=== PATIENT | female | born 1990 | race Two or more races ===

== ENCOUNTER 2017-10-30 19:07 | Emergency (ER) | payer MEDICAID ==
[~2017-10-30] VITALS: Ht 160 cm; Wt 87.5 kg
--- NOTE | 2017-10-30 19:34 | NUR ---
TO BED 10 AMBULATORY C/O RUQ ABDOMINAL PAIN WITH DIARRHEA X2 DAYS. PT AAOX4 NO ACUTE DISTRESS NOTED, RESP EVEN AND UNLABORED. PENDING ER MD DENNIS.
--- NOTE | 2017-10-30 19:45 | NUR ---
Note elsie in EDM - 10/30/17 at 1946 by RUDDY IV removed. Catheter intact and site benign. Pressure and 4x4 applied to site. No bleeding noted. ambulatory with a steady gait noted. Patient discharged to home in stable condition. Written and verbal after care instructions given. Patient verbalizes understanding of instruction.
[2017-10-30 20:26] LABS: APPEARANCE,URINE Clear (CLEAR); BILIRUBIN,URINE Negative (NEGATIVE); BLOOD, URINE Large Ery/uL (NEGATIVE); COLOR,URINE Yellow (YELLOW); KETONES,URINE Negative (NEGATIVE); LEUKOCYTE ESTERASE ,URINE Negative (NEGATIVE); NITRITE, URINE Negative (NEGATIVE); PH,URINE 5.5 (5.0-8.0); PROTEIN,URINE Negative (NEGATIVE); UGLUCOSE Negative (NEGATIVE); UROBILINOGEN,URINE 0.2 EU/dL (0.2)
[2017-10-30 20:29] LABS: BASOPHILS # (AUTO) 0.1 /CMM (0.0-0.2); BASOPHILS % (AUTO) 0.8 % (0.0-2.0); EOSINOPHILS % (AUTO) 0.9 % (0.0-6.0); HEMATOCRIT 30 % (33-45); LYMPHOCYTES # (AUTO) 1.8 /CMM (0.8-4.8); LYMPHOCYTES % (AUTO) 13.8 % (20.0-44.0); MEAN CORPUSCULAR HGB CONC 33 g/dl (31.0-36.0); MEAN CORPUSCULAR VOLUME 72 fL (82-100); MONOCYTES # (AUTO) 0.8 /CMM (0.1-1.30); MONOCYTES % (AUTO) 6.3 % (2.0-12.0); NEUTROPHILS # (AUTO) 10.2 /CMM (1.8-8.9); NEUTROPHILS % (AUTO) 78.2 % (43.0-81.0); PLATELET COUNT (AUTO) 500 /CMM (150-450); RED BLOOD CELL COUNT(AUTO) 4.21 MIL/uL (4.0-5.2)
[2017-10-30] MEDS ORDERED: KETOROLAC TROMETHAMINE INJ 30 MG/ML VIAL IV ONE (20:30)
[2017-10-30] MEDS ORDERED: IV NS 0.9% 1,000 ML BAG IV ONE (20:30)
[2017-10-30] MEDS ORDERED: KETOROLAC TROMETHAMINE INJ 30 MG/ML VIAL ONE (20:31)
[2017-10-30 20:37] LABS: BACTERIA,URINE Few /HPF (None Seen); MUCUS,URINE Few /LPF (None Seen); RBC,URINE 21-50 /HPF (0-2); SQUAMOUS EPITHELIAL CELL,UR Moderate /HPF (None Seen); URINE AMORPHOUS URATE Few /HPF (None Seen); WBC,URINE 0-2 /HPF (0-3)
[2017-10-30 20:39] LABS: CALCIUM, SERUM 9.1 mg/dL (8.5-10.1); CREATININE 0.8 mg/dL (0.6-1.3); POTASSIUM 3.6 mmol/L (3.5-5.1)
--- NOTE | 2017-10-30 20:45 | NUR ---
UTS TECH AT BEDSIDE.
[2017-10-30 20:46] LABS: BILIRUBIN,TOTAL 0.2 mg/dL (0.2-1.0); TOTAL PROTEIN, SERUM 8.4 g/dL (6.4-8.2)
--- NOTE | 2017-10-30 21:53 | NUR ---
IV removed. Catheter intact and site benign. Pressure and 4x4 applied to site. No bleeding noted. Patient discharged to home in stable condition. Written and verbal after care instructions given. Patient verbalizes understanding of instruction. ambulatory with a steady gait
[2017-10-30 21:55] VITALS: BP 121/62
== END 2017-10-30 21:56 | disposition home or self-care (01) ==
LOC: ER 19:12
DX: N13.2 Hydronephrosis with renal and ureteral calculous obstruction (principal)
CPT/HCPCS: 36415; 76705-TC; 80048-TC; 80076-TC; 81000-TC; 83690-TC; 84703-TC; 85025-TC; A4606; J1885; J7030; Z7610

== ENCOUNTER 2018-02-03 15:07 | Emergency (ER) | payer MEDICAID ==
[~2018-02-03] VITALS: Ht 160 cm; Wt 87.1 kg
[2018-02-03 15:43] VITALS: BP 123/68
--- NOTE | 2018-02-03 15:45 | NUR ---
AAOX3, CAME TO ER C/O DOG BITE AND SCRATCHES TO RT UPPER ARM AND LOWER BACK X TODAY. RR IS EVEN AND UNLABORED WITH NAD NOTED. SKIN IS WARM AND DRY. AWAITING MD FOR EVAL.
[2018-02-03] MEDS ORDERED: HYDROCODONE/APAP 5/325MG 1 EACH TABLET PO ONE (16:00)
[2018-02-03] MEDS ORDERED: AMOX/CLAVULANATE 875 MG TABLET PO ONE (16:00)
[2018-02-03] MEDS ORDERED: TDAP [DIPH/PERTUSSIS/TET] 0.5 ML VIAL IM ONE ×2 (16:00→16:02)
[2018-02-03] MEDS ORDERED: AMOX/CLAVULANATE 875 MG TABLET ONE (16:02)
[2018-02-03] MEDS ORDERED: HYDROCODONE/APAP 5/325MG 1 EACH TABLET ONE (16:02)
--- NOTE | 2018-02-03 16:59 | NUR ---
Patient discharged to home in stable condition. Written and verbal after care instructions given. Patient verbalizes understanding of instruction.
== END 2018-02-03 16:58 | disposition home or self-care (01) ==
LOC: ER 15:12
DX: S41.152A Open bite of left upper arm, initial encounter (principal); Z87.442 Personal history of urinary calculi; W54.0XXA Bitten by dog, initial encounter; Y93.89 Activity, other specified; Y92.89 Other specified places as the place of occurrence of the external cause; Y99.8 Other external cause status
CPT/HCPCS: 90715; A4606; A6403; Z7610

== ENCOUNTER 2018-06-08 17:15 | Emergency (ER) | payer MEDICAID ==
[~2018-06-08] VITALS: Ht 162.6 cm; Wt 81.6 kg
--- NOTE | 2018-06-08 17:29 | NUR ---
BIB BY SELF 27 YEAR OLD FEMALE C/O nausea/diarrhea x 1 day, ALERT AND ORIENTED X4, BREATHING EVEN AND UNLABORED WITH NO SOB NOTED. SKIN WARM TO TOUCH AND INTACT. AWAITING TO BE SEEN BY MD.
[2018-06-08] MEDS ORDERED: MAG HYDROX/AL HYDROX/SIMETH 30 ML UDC ONE (17:55)
[2018-06-08] MEDS ORDERED: ONDANSETRON HCL/PF 4 MG/2 ML VIAL ONE (17:55)
[2018-06-08 17:57] LABS: BASOPHILS % (AUTO) 0.5 % (0.0-2.0); EOSINOPHILS % (AUTO) 0.3 % (0.0-6.0); HEMATOCRIT 38 % (33-45); HEMOGLOBIN 12.4 g/dL (11.5-14.8); LYMPHOCYTES % (AUTO) 16.6 % (20.0-44.0); MEAN CORPUSCULAR HGB CONC 32 g/dl (31.0-36.0); MEAN CORPUSCULAR VOLUME 81 fL (82-100); MONOCYTES # (AUTO) 0.4 /CMM (0.1-1.30); MONOCYTES % (AUTO) 6.7 % (2.0-12.0); NEUTROPHILS # (AUTO) 4.7 /CMM (1.8-8.9); NEUTROPHILS % (AUTO) 75.9 % (43.0-81.0); PLATELET COUNT (AUTO) 397 /CMM (150-450); RED BLOOD CELL COUNT(AUTO) 4.71 MIL/uL (4.0-5.2); WHITE BLOOD COUNT (AUTO) 6.2 K/uL (4.3-11.0)
[2018-06-08] MEDS ORDERED: IV NS 0.9% 500 ML BAG IV ONE (18:00)
[2018-06-08] MEDS ORDERED: ONDANSETRON HCL/PF 4 MG/2 ML VIAL IVP ONE (18:00)
[2018-06-08] MEDS ORDERED: MAG HYDROX/AL HYDROX/SIMETH 30 ML UDC PO ONE (18:00)
[2018-06-08 18:03] LABS: CALCIUM, SERUM 8.8 mg/dL (8.5-10.1); CREATININE 0.7 mg/dL (0.6-1.3); POTASSIUM 3.5 mmol/L (3.5-5.1)
[2018-06-08 18:08] LABS: ALBUMIN 3.4 g/dL (3.4-5.0); APPEARANCE,URINE Slightly Cloudy (CLEAR); BILIRUBIN,DIRECT 0.1 mg/dL (0.0-0.2); BILIRUBIN,TOTAL 0.2 mg/dL (0.2-1.0); BILIRUBIN,URINE SMALL (NEGATIVE); BLOOD, URINE Small Ery/uL (NEGATIVE); COLOR,URINE Yellow (YELLOW); KETONES,URINE 15 (NEGATIVE); LEUKOCYTE ESTERASE ,URINE Negative (NEGATIVE); NITRITE, URINE Negative (NEGATIVE); PH,URINE 5.5 (5.0-8.0); PROTEIN,URINE 30 mg/dl (NEGATIVE); TOTAL PROTEIN, SERUM 8.3 g/dL (6.4-8.2); UGLUCOSE Negative (NEGATIVE); UROBILINOGEN,URINE 0.2 EU/dL (0.2)
[2018-06-08 18:23] LABS: MUCUS,URINE Few /LPF (None Seen); SQUAMOUS EPITHELIAL CELL,UR Moderate /HPF (None Seen)
[2018-06-08 18:25] LABS: BACTERIA,URINE Few /HPF (None Seen); WBC,URINE 0-2 /HPF (0-3)
[2018-06-08] MEDS ORDERED: DICYCLOMINE HCL 10 MG CAPSULE PO ONE ×2 (18:30→18:39)
--- NOTE | 2018-06-08 18:45 | NUR ---
Patient discharged to home in stable condition. Written and verbal after care instructions given. Patient verbalizes understanding of instruction. IV removed. Catheter intact and site benign. Pressure and 4x4 applied to site. No bleeding noted.
[2018-06-08 18:46] VITALS: BP 118/77
== END 2018-06-08 18:47 | disposition home or self-care (01) ==
LOC: ER 17:24
DX: R19.7 Diarrhea, unspecified (principal); R11.0 Nausea; Z87.442 Personal history of urinary calculi
CPT/HCPCS: 36415; 80048-TC; 80076-TC; 81000-TC; 83690-TC; 84703-TC; 85025-TC; J2405; J7040

== ENCOUNTER 2018-06-23 10:42 | Emergency (ER) | payer MEDICAID ==
[~2018-06-23] VITALS: Ht 162.6 cm; Wt 87.5 kg
--- NOTE | 2018-06-23 10:45 | NUR ---
BIB SELF W C/O EARACHE THIS AM, L BUTTOCK "BUMP." POSSIBLE ABSCESS X 2 DAYS. TO ER BED 4, AWAITING MD DENNIS
--- NOTE | 2018-06-23 10:50 | NUR ---
DR RITTER AT BEDSIDE
[2018-06-23] MEDS ORDERED: IBUPROFEN 400 MG TABLET ONE (10:57)
[2018-06-23] MEDS ORDERED: IBUPROFEN 400 MG TABLET PO ONE (11:00)
[2018-06-23] MEDS ORDERED: CEFAZOLIN 1 GM VIAL IM ONE (11:30)
[2018-06-23] MEDS ORDERED: CLINDAMYCIN 900 MG/6 ML VIAL IM ONE (11:30)
[2018-06-23] MEDS ORDERED: CLINDAMYCIN 900 MG/6 ML VIAL ONE (11:31)
--- NOTE | 2018-06-23 11:50 | NUR ---
Patient discharged to home in stable condition. Written and verbal after care instructions given. Patient verbalizes understanding of instruction.
[2018-06-23 13:00] VITALS: BP 113/82
== END 2018-06-23 11:50 | disposition home or self-care (01) ==
LOC: ER 10:46
DX: L03.317 Cellulitis of buttock (principal); H92.02 Otalgia, left ear; I10 Essential (primary) hypertension; Z87.442 Personal history of urinary calculi
CPT/HCPCS: 96372; 99283; A4606; J0690; J3490; Z7610

== ENCOUNTER 2019-05-05 15:29 | Emergency (ER) | payer SELFPAY ==
[~2019-05-05] VITALS: Ht 162.6 cm; Wt 94.8 kg
[2019-05-05 15:35] VITALS: BP 128/82
[2019-05-05] MEDS ORDERED: IBUPROFEN 600 MG TABLET PO ONE ×2 (16:30→16:34)
== END 2019-05-05 17:43 | disposition home or self-care (01) ==
LOC: ER 15:30
DX: S39.012A Strain of muscle, fascia and tendon of lower back, initial encounter (principal); M25.512 Pain in left shoulder; Z87.442 Personal history of urinary calculi; V49.49XA Driver injured in collision with other motor vehicles in traffic accident, initial encounter; Y93.89 Activity, other specified; Y92.488 Other paved roadways as the place of occurrence of the external cause; Y99.8 Other external cause status
CPT/HCPCS: 73030-TC; 84703-TC

== ENCOUNTER 2019-07-12 17:15 | Emergency (ER) | payer MEDICAID, OTHER ==
[~2019-07-12] VITALS: Ht 162.6 cm; Wt 92.1 kg
--- NOTE | 2019-07-12 18:00 | NUR ---
patient came in to the er c/o Cough, congestion, runny nose, and headache x 1 week. On room air, breathing evenly and unlabored. kept comfortable, will continue to monitor accordingly.
[2019-07-12 18:30] LABS: APPEARANCE,URINE Clear (CLEAR); BILIRUBIN,URINE Negative (NEGATIVE); BLOOD, URINE Trace-intact Ery/uL (NEGATIVE); COLOR,URINE Yellow (YELLOW); KETONES,URINE Negative (NEGATIVE); LEUKOCYTE ESTERASE ,URINE Negative (NEGATIVE); NITRITE, URINE Negative (NEGATIVE); PROTEIN,URINE Negative (NEGATIVE); UGLUCOSE Negative (NEGATIVE)
[2019-07-12 18:45] LABS: BACTERIA,URINE Few /HPF (None Seen); SQUAMOUS EPITHELIAL CELL,UR Few /HPF (None Seen); WBC,URINE NONE SEEN /HPF (0-3)
[2019-07-12 18:50] VITALS: BP 123/81
--- NOTE | 2019-07-12 18:50 | NUR ---
Patient discharged to home in stable condition. Written and verbal after care instructions given. Patient verbalizes understanding of instruction.
== END 2019-07-12 18:50 | disposition home or self-care (01) ==
LOC: ER 17:19
DX: O99.511 Diseases of the respiratory system complicating pregnancy, first trimester (principal); J06.9 Acute upper respiratory infection, unspecified; Z3A.11 11 weeks gestation of pregnancy; Z87.442 Personal history of urinary calculi
CPT/HCPCS: 81000-TC; 84703-TC

== ENCOUNTER 2020-02-07 06:09 | Emergency (ER) | payer MEDICAID ==
[~2020-02-07] VITALS: Ht 162.6 cm; Wt 96.6 kg
[2020-02-07] MEDS ORDERED: ONDANSETRON 4 MG TAB.RAPDIS SL ONE (06:30)
--- NOTE | 2020-02-07 06:30 | NUR ---
bibself c/o left sided abd pain since 5am +nausea , denied diarrhea, vomiting or constipation. pt w/ PMH of renal stone. able to provide urine. ambulatory to bed 1. will cont to monitor,
--- NOTE | 2020-02-07 06:37 | NUR ---
URINE COLLECTED AND SENT TO THE LAB.
--- NOTE | 2020-02-07 06:39 | NUR ---
ELEVATOR CONSTRUCTOR SUPERVISOR AT BEDSIDE.
[2020-02-07] MEDS ORDERED: ONDANSETRON 4 MG TAB.RAPDIS ONE (06:50)
--- NOTE | 2020-02-07 06:56 | NUR ---
PATIENT SIGNED WAIVER FORM
[2020-02-07 06:58] LABS: BASOPHILS % (AUTO) 0.5 % (0.0-2.0); EOSINOPHILS % (AUTO) 1.3 % (0.0-6.0); HEMATOCRIT 38 % (33-45); HEMOGLOBIN 12.6 g/dL (11.5-14.8); LYMPHOCYTES # (AUTO) 2.6 /CMM (0.8-4.8); LYMPHOCYTES % (AUTO) 25.2 % (20.0-44.0); MEAN CORPUSCULAR HGB CONC 33 g/dl (31.0-36.0); MEAN CORPUSCULAR VOLUME 92 fL (82-100); MONOCYTES # (AUTO) 0.6 /CMM (0.1-1.30); MONOCYTES % (AUTO) 5.7 % (2.0-12.0); NEUTROPHILS # (AUTO) 6.9 /CMM (1.8-8.9); NEUTROPHILS % (AUTO) 67.3 % (43.0-81.0); PLATELET COUNT (AUTO) 397 /CMM (150-450); RED BLOOD CELL COUNT(AUTO) 4.17 MIL/uL (4.0-5.2); WHITE BLOOD COUNT (AUTO) 10.3 K/uL (4.3-11.0)
--- NOTE | 2020-02-07 07:01 | NUR ---
TRIED CALLING FOR RADIOLOGY TO TAKE PATIENT FOR XRAY, NO RESPONSE.
[2020-02-07 07:02] LABS: APPEARANCE,URINE CLOUDY (CLEAR); BILIRUBIN,URINE SMALL (NEGATIVE); BLOOD, URINE LARGE Ery/uL (NEGATIVE); KETONES,URINE NEGATIVE (NEGATIVE); LEUKOCYTE ESTERASE ,URINE NEGATIVE (NEGATIVE); NITRITE, URINE NEGATIVE (NEGATIVE); PH,URINE 5.5 (5.0-8.0); PROTEIN,URINE 30 mg/dl (NEGATIVE); UGLUCOSE NEGATIVE (NEGATIVE); UROBILINOGEN,URINE 0.2 EU/dL (0.2)
[2020-02-07 07:03] LABS: COLOR,URINE AMBER (YELLOW)
[2020-02-07 07:10] LABS: ALBUMIN 3.5 g/dL (3.4-5.0); BILIRUBIN,DIRECT 0.1 mg/dL (0.0-0.2); BILIRUBIN,TOTAL 0.1 mg/dL (0.2-1.0); CALCIUM, SERUM 7.9 mg/dL (8.5-10.1); CREATININE 0.9 mg/dL (0.6-1.3); POTASSIUM 3.4 mmol/L (3.5-5.1); TOTAL PROTEIN, SERUM 7.8 g/dL (6.4-8.2)
[2020-02-07 07:14] LABS: BACTERIA,URINE Rare /HPF (None Seen); RBC,URINE TOO NUMEROUS TO COUN /HPF (0-2); SQUAMOUS EPITHELIAL CELL,UR Few /HPF (None Seen); WBC,URINE 0-2 /HPF (0-3)
[2020-02-07] MEDS ORDERED: KETOROLAC TROMETHAMINE INJ 30 MG/ML VIAL ONE (08:13)
[2020-02-07] MEDS ORDERED: KETOROLAC TROMETHAMINE INJ 60 MG/2 ML VIAL IM ONE (08:30)
[2020-02-07 09:00] VITALS: BP 145/81
--- NOTE | 2020-02-07 09:01 | NUR ---
Patient discharged to home in stable condition. Written and verbal after care instructions given. Patient verbalizes understanding of instruction.
== END 2020-02-07 09:00 | disposition home or self-care (01) ==
LOC: ER 06:10
DX: N13.2 Hydronephrosis with renal and ureteral calculous obstruction (principal)
CPT/HCPCS: 36415; 74176; 80048; 80076; 81001; 83690; 84703; 85025; 87086; 96372; 99284; J1885; Q0162; 81000-TC

== ENCOUNTER 2020-04-15 04:17 | Emergency (ER) | payer SELFPAY ==
[~2020-04-15] VITALS: Ht 162.6 cm; Wt 97.1 kg
--- NOTE | 2020-04-15 04:20 | NUR ---
PT CAME TO THE ER C/O L FLANK PAIN AND NAUSEA SINCE YESTERDAY. 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 PT AAOX4, RESPIRATIONS EVEN AND UNLABORED ON RA W/ NAD NOTED. PT CONNECTED TO THE SPINNER CAP FRAME AND POX
[2020-04-15] MEDS ORDERED: KETOROLAC TROMETHAMINE INJ 30 MG/ML VIAL ONE (04:41)
[2020-04-15] MEDS ORDERED: ONDANSETRON HCL/PF 4 MG/2 ML VIAL ONE (04:41)
--- NOTE | 2020-04-15 04:53 | NUR ---
BLOOD COLLECTED AND SENT TO LAB
[2020-04-15 04:55] LABS: BASOPHILS % (AUTO) 0.4 % (0.0-2.0); EOSINOPHILS % (AUTO) 0.9 % (0.0-6.0); HEMATOCRIT 36 % (33-45); LYMPHOCYTES # (AUTO) 2.1 /CMM (0.8-4.8); MEAN CORPUSCULAR HGB CONC 33 g/dl (31.0-36.0); MEAN CORPUSCULAR VOLUME 92 fL (82-100); MONOCYTES # (AUTO) 0.9 /CMM (0.1-1.30); MONOCYTES % (AUTO) 6.6 % (2.0-12.0); NEUTROPHILS # (AUTO) 9.9 /CMM (1.8-8.9); NEUTROPHILS % (AUTO) 76.1 % (43.0-81.0); PLATELET COUNT (AUTO) 347 /CMM (150-450); RED BLOOD CELL COUNT(AUTO) 3.95 MIL/uL (4.0-5.2)
[2020-04-15] MEDS ORDERED: ONDANSETRON HCL/PF 4 MG/2 ML VIAL IVP ONE (05:00)
[2020-04-15] MEDS ORDERED: KETOROLAC TROMETHAMINE INJ 30 MG/ML VIAL IV ONE (05:00)
[2020-04-15] MEDS ORDERED: IV NS 0.9% 1,000 ML BAG IV ONE (05:00)
[2020-04-15 05:13] LABS: APPEARANCE,URINE Clear (CLEAR); BILIRUBIN,URINE Negative (NEGATIVE); BLOOD, URINE Large Ery/uL (NEGATIVE); COLOR,URINE Yellow (YELLOW); LEUKOCYTE ESTERASE ,URINE Trace (NEGATIVE); NITRITE, URINE Negative (NEGATIVE); PH,URINE 5.5 (5.0-8.0); PROTEIN,URINE Negative (NEGATIVE); UGLUCOSE Negative (NEGATIVE); UROBILINOGEN,URINE 0.2 EU/dL (0.2)
[2020-04-15 05:15] LABS: ALBUMIN 3.3 g/dL (3.4-5.0); BILIRUBIN,DIRECT 0.1 mg/dL (0.0-0.2); BILIRUBIN,TOTAL 0.3 mg/dL (0.2-1.0); CALCIUM, SERUM 8.4 mg/dL (8.5-10.1); CREATININE 1.1 mg/dL (0.6-1.3); POTASSIUM 3.7 mmol/L (3.5-5.1); TOTAL PROTEIN, SERUM 7.4 g/dL (6.4-8.2)
[2020-04-15 05:46] LABS: BACTERIA,URINE None seen /HPF (None Seen); MUCUS,URINE Few /LPF (None Seen); RBC,URINE 21-50 /HPF (0-2); SQUAMOUS EPITHELIAL CELL,UR Few /HPF (None Seen); WBC,URINE 0-2 /HPF (0-3)
[2020-04-15 06:01] VITALS: BP 116/78
--- NOTE | 2020-04-15 06:01 | NUR ---
IV removed. Catheter intact and site benign. Pressure and 4x4 applied to site. No bleeding noted. Patient discharged to home in stable condition. Written and verbal after care instructions given. Patient verbalizes understanding of instruction. pt ambulatory with a steady gait
--- NOTE | 2020-04-15 06:03 | NUR ---
instructed pt not to drive. pt verbalized understanding.
== END 2020-04-15 06:04 | disposition home or self-care (01) ==
LOC: ER 04:18
DX: N20.0 Calculus of kidney (principal); J18.9 Pneumonia, unspecified organism
CPT/HCPCS: 36415; 74176; 80048; 80076; 81001; 83690; 84703; 85025; 96361; 96374; 96375; 99284; J1885; J2405; J7030; 81000-TC

== ENCOUNTER 2020-09-03 23:26 | Emergency (ER) | payer SELFPAY ==
[~2020-09-03] VITALS: Ht 162.6 cm; Wt 97.1 kg
--- NOTE | 2020-09-03 23:29 | NUR ---
PT AAOX4. AMBULATORY WITH STEADY GAIT. BIBSELF C/O RIGHT FLANK PAIN STARTED@8PM TODAY. PLACED IN BED 1 ON MONITOR AND PULSE OX. VSS.
[2020-09-04] MEDS ORDERED: KETOROLAC TROMETHAMINE 15 MG/ML VIAL ONE (00:23)
[2020-09-04] MEDS ORDERED: ONDANSETRON HCL/PF 4 MG/2 ML VIAL ONE (00:23)
[2020-09-04] MEDS ORDERED: ONDANSETRON HCL/PF 4 MG/2 ML VIAL IV ONE (00:30)
[2020-09-04] MEDS ORDERED: KETOROLAC TROMETHAMINE INJ 30 MG/ML VIAL IV ONE (00:30)
[2020-09-04 00:38] LABS: BILIRUBIN,URINE SMALL (NEGATIVE); COLOR,URINE LIGHT YELLOW (YELLOW); LEUKOCYTE ESTERASE ,URINE Negative (NEGATIVE); NITRITE, URINE Negative (NEGATIVE); PROTEIN,URINE Negative (NEGATIVE); UGLUCOSE Negative (NEGATIVE); UROBILINOGEN,URINE 0.2 EU/dL (0.2)
--- NOTE | 2020-09-04 00:41 | NUR ---
PT MEDICATED, VSS.
[2020-09-04 00:48] LABS: WBC,URINE 0-2 /HPF (0-3)
[2020-09-04 00:49] LABS: BACTERIA,URINE 1+ /HPF (None Seen); SQUAMOUS EPITHELIAL CELL,UR Few /HPF (None Seen)
[2020-09-04] MEDS ORDERED: ONDA4TAB5 PO (01:38)
[2020-09-04] MEDS ORDERED: TAMS-12 GT (01:38)
[2020-09-04] MEDS ORDERED: KETO10TA2 PO (01:38)
[2020-09-04 01:40] VITALS: BP 131/83
--- NOTE | 2020-09-04 01:40 | NUR ---
Patient discharged to home in stable condition. Written and verbal after care instructions given. Patient verbalizes understanding of instruction and RX. vss. Pt denies pain.
--- NOTE | 2020-09-04 01:40 | NUR ---
IV removed. Catheter intact and site benign. Pressure and 4x4 applied to site. No bleeding noted.
[2020-09-05] MEDS ORDERED: ONDA4TAB5 PO (03:36)
[2020-09-05] MEDS ORDERED: HYDR-4209 PO (03:36)
[2020-09-05] MEDS ORDERED: TAMS-12 PO (03:42)
[2020-09-05] MEDS ORDERED: NITR100C6 PO (03:42)
== END 2020-09-04 01:53 | disposition home or self-care (01) ==
LOC: ER 23:28
DX: N13.2 Hydronephrosis with renal and ureteral calculous obstruction (principal)
CPT/HCPCS: 74176; 81001; 84703; 96374; 96375; 99284; J1885; J2405

== ENCOUNTER 2020-09-05 01:21 | Emergency (ER) | payer SELFPAY ==
[~2020-09-05] VITALS: Ht 162.6 cm; Wt 97.1 kg
[~2020-09-05 01:21] MED LIST: KETO10TA2 PO; ONDA4TAB5 PO; TAMS-12 GT
--- NOTE | 2020-09-05 01:45 | NUR ---
PT BIBSELF C/O PAIN AFTER BEING DX WITH KIDNEY STONES LAST NIGHT. PT AAOX4 BREATHING EVENLY AND UNLABORED. PT STATES " I DIDNT RN SURGERY ICU MY PRESCRIPTION AND IM IN PAIN". PT SKIN WARM, DRY, AND INTACT. PT ATTACHED TO MONITOR AND POX. PT GIVEN BLANKET AND CALL LIGHT WITHIN REACH. MD AT BEDSIDE
[2020-09-05] MEDS ORDERED: ONDANSETRON HCL/PF 4 MG/2 ML VIAL ONE (01:55)
[2020-09-05] MEDS ORDERED: KETOROLAC TROMETHAMINE INJ 30 MG/ML VIAL ONE (01:55)
[2020-09-05] MEDS ORDERED: HYDROMORPHONE 1 MG/1 ML DISP.SYRIN ONE ×2 (01:56→04:03)
[2020-09-05] MEDS ORDERED: KETOROLAC TROMETHAMINE INJ 30 MG/ML VIAL IV ONE (02:00)
[2020-09-05] MEDS ORDERED: HYDROMORPHONE 1 MG/1 ML DISP.SYRIN IV ONE ×2 (02:00→04:30)
[2020-09-05] MEDS ORDERED: IV NS 0.9% 1,000 ML BAG IV ONE (02:00)
[2020-09-05] MEDS ORDERED: ONDANSETRON HCL/PF - ER 4 MG/2 ML VIAL IV ONE (02:00)
--- NOTE | 2020-09-05 02:39 | NUR ---
PT RESTING WITH EYES CLOSED. EASILY AROUSABLE
--- NOTE | 2020-09-05 03:03 | NUR ---
LAB AT BEDSIDE
[2020-09-05 03:21] LABS: BASOPHILS # (AUTO) 0.1 /CMM (0.0-0.2); BASOPHILS % (AUTO) 0.4 % (0.0-2.0); BILIRUBIN,URINE NEGATIVE (NEGATIVE); COLOR,URINE YELLOW (YELLOW); EOSINOPHILS % (AUTO) 1.3 % (0.0-6.0); HEMATOCRIT 33 % (33-45); HEMOGLOBIN 11.1 g/dL (11.5-14.8); LEUKOCYTE ESTERASE ,URINE NEGATIVE (NEGATIVE); LYMPHOCYTES # (AUTO) 3.3 /CMM (0.8-4.8); LYMPHOCYTES % (AUTO) 23.1 % (20.0-44.0); MEAN CORPUSCULAR HGB CONC 34 g/dl (31.0-36.0); MEAN CORPUSCULAR VOLUME 89 fL (82-100); MONOCYTES # (AUTO) 1.3 /CMM (0.1-1.30); MONOCYTES % (AUTO) 8.9 % (2.0-12.0); NEUTROPHILS # (AUTO) 9.5 /CMM (1.8-8.9); NEUTROPHILS % (AUTO) 66.3 % (43.0-81.0); NITRITE, URINE POSITIVE (NEGATIVE); PLATELET COUNT (AUTO) 400 /CMM (150-450); PROTEIN,URINE NEGATIVE (NEGATIVE); RED BLOOD CELL COUNT(AUTO) 3.72 MIL/uL (4.0-5.2); UGLUCOSE NEGATIVE (NEGATIVE); UROBILINOGEN,URINE 0.2 EU/dL (0.2); WHITE BLOOD COUNT (AUTO) 14.3 K/uL (4.3-11.0)
[2020-09-05 03:27] LABS: BACTERIA,URINE 1+ /HPF (None Seen); MUCUS,URINE Few /LPF (None Seen); SQUAMOUS EPITHELIAL CELL,UR Few /HPF (None Seen); URINE AMORPHOUS URATE Few /HPF (None Seen)
[2020-09-05 03:29] LABS: CALCIUM, SERUM 8.4 mg/dL (8.5-10.1); POTASSIUM 3.9 mmol/L (3.5-5.1)
--- NOTE | 2020-09-05 03:30 | NUR ---
US AT BEDSIDE
[2020-09-05] MEDS ORDERED: ONDA4TAB5 PO (03:36)
[2020-09-05] MEDS ORDERED: HYDR-4209 PO (03:36)
[2020-09-05] MEDS ORDERED: TAMS-12 PO (03:42)
[2020-09-05] MEDS ORDERED: NITR100C6 PO (03:42)
[2020-09-05] MEDS ORDERED: NITROFURANTOIN/NITROFURAN MAC 100 MG CAPSULE ONE (03:58)
[2020-09-05] MEDS ORDERED: PHENAZOPYRIDINE HCL 200 MG TABLET ONE (03:58)
[2020-09-05] MEDS ORDERED: PHENAZOPYRIDINE HCL 200 MG TABLET PO ONE (04:00)
[2020-09-05] MEDS ORDERED: NITROFURANTOIN/NITROFURAN MAC 100 MG CAPSULE PO ONE (04:00)
[2020-09-05] MEDS ORDERED: TAMSULOSIN 0.4 MG CAP.SR.24H ONE (04:03)
--- NOTE | 2020-09-05 04:10 | NUR ---
Patient discharged to home in stable condition. Written and verbal after care instructions given. Patient verbalizes understanding of instruction. IV removed. Catheter intact and site benign. Pressure and 4x4 applied to site. No bleeding noted. Pt ambulatory with a steady gait
[2020-09-05 04:20] VITALS: BP 124/80
[2020-09-05] MEDS ORDERED: TAMSULOSIN 0.4 MG CAP.SR.24H PO ONE (04:30)
== END 2020-09-05 04:10 | disposition home or self-care (01) ==
LOC: ER 01:23
DX: N20.0 Calculus of kidney (principal); R30.0 Dysuria; Z79.899 Other long term (current) drug therapy
CPT/HCPCS: 36415; 76770; 80048; 81001; 84703; 85025; 87086; 96361; 96374; 96375; 96376; 99285; J1170 ×2; J1885; J2405 ×2; J7030

== ENCOUNTER 2021-06-25 04:22 | Emergency (ER) | payer SELFPAY ==
[~2021-06-25] VITALS: Ht 162.6 cm; Wt 79.4 kg
[~2021-06-25 04:22] MED LIST changes: +HYDR-4209 PO; +NITR100C6 PO; +TAMS-12 PO
--- NOTE | 2021-06-25 04:49 | NUR ---
PT AAOX4. AMBULATORY WITH STEADY GAIT. BIBSELF C/O L FLANK PAIN SINCE 3PM. PLACED IN BED 12 ON MONITOR AND PULSE OX. IV LINE ESTABLISHED LAC 20G, BLOOD WORK COLLECTED, SENT TO LAB. URINE COLLECTED WELL, SENT TO LAB. WILL MEDICATE PT AND MONITOR.
[2021-06-25] MEDS ORDERED: ONDANSETRON HCL/PF 4 MG/2 ML VIAL ONE (04:55)
[2021-06-25] MEDS ORDERED: KETOROLAC TROMETHAMINE INJ 30 MG/ML VIAL ONE (04:55)
[2021-06-25] MEDS ORDERED: IV NS 0.9% 1,000 ML BAG IV ONE (05:00)
[2021-06-25] MEDS ORDERED: ONDANSETRON HCL/PF - ER 4 MG/2 ML VIAL IV ONE (05:30)
[2021-06-25] MEDS ORDERED: KETOROLAC TROMETHAMINE INJ 30 MG/ML VIAL IM ONE (05:30)
[2021-06-25] MEDS ORDERED: IBUP-1955 PO (07:07)
[2021-06-25] MEDS ORDERED: HYDR-4275 PO (07:07)
--- NOTE | 2021-06-25 07:12 | NUR ---
IV removed. Catheter intact and site benign. Pressure and 4x4 applied to site. No bleeding noted. Patient discharged to home in stable condition. Written and verbal after care instructions given. Patient verbalizes understanding of instruction. 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
[2021-06-25 07:13] VITALS: BP 128/76
[2021-06-25 07:16] LABS: BILIRUBIN,URINE NEGATIVE (NEGATIVE); COLOR,URINE YELLOW (YELLOW); LEUKOCYTE ESTERASE ,URINE NEGATIVE (NEGATIVE); NITRITE, URINE NEGATIVE (NEGATIVE); PH,URINE 5.5 (5.0-8.0); PROTEIN,URINE 30 mg/dl (NEGATIVE); UGLUCOSE NEGATIVE (NEGATIVE); UROBILINOGEN,URINE 0.2 EU/dL (0.2)
[2021-06-25 07:35] LABS: CALCIUM, SERUM 8.3 mg/dL (8.5-10.1); POTASSIUM 3.8 mmol/L (3.5-5.1)
[2021-06-25 07:41] LABS: ALBUMIN 3.1 g/dL (3.4-5.0); BILIRUBIN,DIRECT 0.1 mg/dL (0.0-0.2); BILIRUBIN,TOTAL 0.1 mg/dL (0.2-1.0); TOTAL PROTEIN, SERUM 7.5 g/dL (6.4-8.2)
[2021-06-25 07:47] LABS: BASOPHILS % (AUTO) 0.5 % (0.0-2.0); EOSINOPHILS % (AUTO) 0.7 % (0.0-6.0); HEMATOCRIT 31 % (33-45); HEMOGLOBIN 10.7 g/dL (11.5-14.8); LYMPHOCYTES # (AUTO) 1.9 K/uL (0.8-4.8); LYMPHOCYTES % (AUTO) 18.9 % (20.0-44.0); MEAN CORPUSCULAR HGB CONC 34 g/dl (31.0-36.0); MEAN CORPUSCULAR VOLUME 87 fL (82-100); MONOCYTES # (AUTO) 0.9 K/uL (0.1-1.30); MONOCYTES % (AUTO) 9.1 % (2.0-12.0); NEUTROPHILS # (AUTO) 7.1 K/uL (1.8-8.9); NEUTROPHILS % (AUTO) 70.8 % (43.0-81.0); PLATELET COUNT (AUTO) 440 K/uL (150-450)
[2021-06-25 09:52] LABS: BACTERIA,URINE Rare /HPF (None Seen); WBC,URINE 0-2 /HPF (0-3)
[2021-06-25 09:53] LABS: SQUAMOUS EPITHELIAL CELL,UR Few /HPF (None Seen)
[2021-06-25 09:57] LABS: RBC,URINE 21-50 /HPF (0-2)
== END 2021-06-25 07:13 | disposition home or self-care (01) ==
LOC: ER 04:22
DX: N20.0 Calculus of kidney (principal)
CPT/HCPCS: 36415; 80048; 80076; 81001; 83690; 84703; 85025; 96361; 96372; 96374; 99284; J1885; J2405 ×2; J7030